=== PATIENT | female | born 1960 | race Two or more races ===

== ENCOUNTER 2017-02-12 20:10 | Emergency (ER) | payer BC ==
--- NOTE | 2017-02-12 21:08 | RADIOLOGY REPORT (SQ) ---
EXAM DESCRIPTION: WRIST LEFT 3 VIEWS COMPLETED DATE/TIME: 02/12/2017 9:00 pm REASON FOR STUDY: pain/deformity COMPARISON: None. NUMBER OF VIEWS: Three views. TECHNIQUE: AP, lateral, and oblique radiographic images acquired of the left wrist. LIMITATIONS: None. FINDINGS: MINERALIZATION: Normal. BONES: There is a comminuted fracture of the distal radius. There is slight impaction. There is an associated ulnar styloid fracture. No dislocation. SOFT TISSUES: No soft tissue swelling. No foreign body. OTHER: No other significant finding. IMPRESSION: Comminuted slightly impacted fracture of the distal radius and ulnar styloid fracture. No dislocation. TECHNICAL DOCUMENTATION: JOB ID: [id number] [employer]- All Rights Reserved
[2017-02-12] MEDS ORDERED: HYDROCODONE/ACETAMINOPHEN 5-325 MG 6 TAB/DSPK PO PRN (21:31)
--- NOTE | 2017-02-12 22:00 | ER Document Report ---
ED General - General Chief Complaint: Wrist Injury Stated Complaint: LEFT WRIST INJURY Time Seen by Provider: 02/12/17 20:54 TRAVEL OUTSIDE OF THE [place] IN LAST 30 DAYS: No - Related Data Allergies/Adverse Reactions: No Known Allergies Allergy (Verified 02/12/17 20:36) Past Medical History - Social History Smoking Status: Unknown if Ever Smoked Renal/ Medical History: Denies: Hx Peritoneal Dialysis Physical Exam - Vital signs Vitals: Temp Pulse Resp BP Pulse Ox 98.8 F 88 18 131/71 H 98 02/12/17 20:36 02/12/17 20:36 02/12/17 20:36 02/12/17 20:36 02/12/17 20:36 Course - Vital Signs Vital signs: Temp Pulse Resp BP Pulse Ox 98.8 F 88 18 131/71 H 98 02/12/17 20:36 02/12/17 20:36 02/12/17 20:36 02/12/17 20:36 02/12/17 20:36 Discharge - Discharge Clinical Impression: Left wrist fracture Qualifiers: Encounter type: initial encounter Fracture type: closed Qualified Code(s): S62.102A - Fracture of unspecified carpal bone, left wrist, initial encounter for closed fracture Condition: Good Disposition: HOME, SELF-CARE Instructions: Fractured Radius and Ulna ([facility]), Oral Narcotic Medication ([facility]) Additional Instructions: Follow-up with orthopedics. Return to the ER symptoms worsen. Prescriptions: Hydrocodone Bit/Acetaminophen [Hydrocodon-Acetaminophen 5-325] 1 each PO Q6 #25 tablet Forms: Return to Work Referrals: AVTAR SUAREZ DO [ACTIVE STAFF] - Follow up as needed (call tomorrow for appoinment)
[2017-02-12 22:21] VITALS: BP 120/67
--- NOTE | 2017-02-12 23:27 | ER Document Report ---
ED General - General Chief Complaint: Wrist Injury Stated Complaint: LEFT WRIST INJURY Time Seen by Provider: 02/12/17 20:54 TRAVEL OUTSIDE OF THE [place] IN LAST 30 DAYS: No - HPI Patient complains to provider of: Left wrist injury Notes: Patient coming in for evaluation of left wrist pain. Patient states slipped and therefore fell down no loss consciousness however had pain left wrist. Patient denies any other medical issues denies any other trauma denies any pain in the left elbow. Upon my evaluation patient is resting comfortably with an ice bag on the left wrist. - Related Data Allergies/Adverse Reactions: No Known Allergies Allergy (Verified 02/12/17 20:36) Past Medical History - Social History Smoking Status: Unknown if Ever Smoked Family History: Reviewed & Not Pertinent Renal/ Medical History: Denies: Hx Peritoneal Dialysis Review of Systems - Review of Systems Constitutional: No symptoms reported EENT: No symptoms reported Cardiovascular: No symptoms reported Respiratory: No symptoms reported Gastrointestinal: No symptoms reported Genitourinary: No symptoms reported Female Genitourinary: No symptoms reported Musculoskeletal: Other - Left wrist pain Skin: No symptoms reported Hematologic/Lymphatic: No symptoms reported Neurological/Psychological: No symptoms reported Physical Exam - Vital signs Vitals: Temp Pulse Resp BP Pulse Ox 98.8 F 88 18 131/71 H 98 02/12/17 20:36 02/12/17 20:36 02/12/17 20:36 02/12/17 20:36 02/12/17 20:36 Interpretation: Normal - General General appearance: Appears well, Alert - HEENT Head: Normocephalic, Atraumatic Eyes: Normal Pupils: PERRL - Respiratory Respiratory status: No respiratory distress Chest status: Nontender Breath sounds: Normal Chest palpation: Normal - Cardiovascular Rhythm: Regular Heart sounds: Normal auscultation Murmur: No - Abdominal Inspection: Normal Distension: No distension Bowel sounds: Normal Tenderness: Nontender Organomegaly: No organomegaly - Back Back: Normal, Nontender - Extremities General upper extremity: Tender, Normal color, Normal temperature. No: Normal inspection - Left wrist pain swelling with some mild deformity, Normal ROM - Decreased range of motion to the left wrist General lower extremity: Normal inspection, Nontender, Normal color, Normal ROM , Normal temperature, Normal weight bearing. No: Garret's sign - Neurological Neuro grossly intact: Yes Cognition: Normal Orientation: AAOx4 [place] Coma Scale Eye Opening: Spontaneous [place] Coma Scale Verbal: Oriented [place] Coma Scale Motor: Obeys Commands Kav[place] Coma Scale Total: 15 Speech: Normal Motor strength normal: LUE, RUE, LLE, RLE Sensory: Normal - Psychological Associated symptoms: Normal affect, Normal mood - Skin Skin Temperature: Warm Skin Moisture: Dry Skin Color: Normal Course - Re-evaluation Re-evalutation: 02/12/17 23:26 Patient was placed in a sugar tong splint for her radius fracture. Patient was given with a follow-up oral narcotic pain medication discharged home. - Vital Signs Vital signs: Temp Pulse Resp BP Pulse Ox 97.9 F 73 18 120/67 95 02/12/17 22:03 02/12/17 22:03 02/12/17 20:36 02/12/17 22:03 02/12/17 22:03 Procedures - Immobilization Left Wrist Immobilizer type: Sugar tong Performed by: PCT Post-Proc Neuro Vasc Exam: Normal Alignment checked and good: No Discharge - Discharge Clinical Impression: Left wrist fracture Qualifiers: Encounter type: initial encounter Fracture type: closed Qualified Code(s): S62.102A - Fracture of unspecified carpal bone, left wrist, initial encounter for closed fracture Condition: Good Disposition: HOME, SELF-CARE Instructions: Fractured Radius and Ulna ([facility]), Oral Narcotic Medication ([facility]) Additional Instructions: Follow-up with orthopedics. Return to the ER symptoms worsen. Prescriptions: Hydrocodone Bit/Acetaminophen [Hydrocodon-Acetaminophen 5-325] 1 each PO Q6 #25 tablet Forms: Return to Work Referrals: AVTAR SUAREZ DO [ACTIVE STAFF] - Follow up as needed (call tomorrow for appoinment)
== END 2017-02-12 22:25 | disposition home or self-care (01) ==
LOC: ER 20:10
PROC: 2W3DX1Z Immobilization of Left Lower Arm using Splint (ICD-10-PCS; principal; 2017-02-12)
DX: S62.102A Fracture of unspecified carpal bone, left wrist, initial encounter for closed fracture (principal); M25.532 Pain in left wrist; W01.0XXA Fall on same level from slipping, tripping and stumbling without subsequent striking against object, initial encounter
CPT/HCPCS: 99283